=== PATIENT | male | born 1950 | race Caucasian/White ===

== ENCOUNTER 2020-09-03 06:05 | Observation (INO) | payer MEDICARE, OTHER ==
[~2020-09-03] VITALS: Ht 175.3 cm; Wt 126.6 kg
[2020-09-03] MEDS ORDERED: FAMOTIDINE/PF 20 MG/2 ML VIAL IV ONE (06:21)
[2020-09-03] MEDS ORDERED: ASPIRIN 325 MG TABLET ONE (06:21)
[2020-09-03] MEDS ORDERED: PANTOPRAZOLE 40 MG/VIAL ONE (06:21)
[2020-09-03 06:33] LABS: BASOPHILS % (AUTO) 1.1 % (0.0-5.0); EOSINOPHILS % (AUTO) 4.7 % (0.0-8.0); HEMATOCRIT 43.4 % (36-48); LYMPHOCYTES % (AUTO) 20.3 % (21.0-51.0); MEAN CORPUSCULAR HEMOGLOBIN 28.9 pg (27.0-33.0); MEAN CORPUSCULAR HGB CONC 32.7 g/dL (32.0-36.0); MEAN CORPUSCULAR VOLUME 88.4 fL (79-99); MONOCYTES % (AUTO) 14.2 % (3.0-13.0); NEUTROPHILS % (AUTO) 59.5 % (40.0-77.0); PLATELET COUNT (AUTO) 233 K/uL (130-400); RED BLOOD CELL COUNT(AUTO) 4.91 MIL/uL (4.00-5.50); RED CELL DISTRIBUTION WIDTH 15.4 % (11.0-15.5); WHITE BLOOD COUNT (AUTO) 5.4 K/uL (4.8-10.8)
[2020-09-03 06:46] LABS: PARTIAL THROMBOPLASTIN TIME 40.2 SEC (26.3-35.5)
[2020-09-03 06:47] LABS: ALBUMIN 3.1 g/dL (3.5-5.0); BILIRUBIN,TOTAL 0.4 mg/dL (0.2-1.0); CREATININE 1.7 mg/dL (0.5-1.5); POTASSIUM 3.3 mmol/L (3.5-5.1); TOTAL PROTEIN, SERUM 7.3 g/dL (6.0-8.3)
[2020-09-03 06:56] LABS: B-TYPE NATRIURETIC PEPTIDE 40 pg/mL (0-100)
[2020-09-03 06:59] LABS: INR 4.01 (0.85-1.15); PROTHROMBIN TIME 39.2 SEC (9.6-11.6)
[2020-09-03 07:42] LABS: APPEARANCE,URINE Clear (CLEAR); BILIRUBIN,URINE Negative (NEGATIVE); COLOR,URINE Yellow (YELLOW); GLUCOSE, URINE (UA) 250 mg/dL (NEGATIVE); KETONES,URINE Negative (NEGATIVE); LEUKOCYTE ESTERASE ,URINE Negative (NEGATIVE); NITRATE,URINE Negative (NEGATIVE); OCCULT BLOOD,URINE Negative (NEGATIVE); PH,URINE 5.5 (5.0-8.0); PROTEIN,URINE Negative (NEGATIVE); UROBILINOGEN,URINE 0.2 mg/dL (0.2-1.0)
[2020-09-03] MEDS ORDERED: LIDOCAINE HCL 2% VISCOUS 15 ML UDCUP ONE (07:50)
[2020-09-03] MEDS ORDERED: MAGNESIUM HYDROXIDE 30 ML/UDCUP ONE (07:50)
[2020-09-03] MEDS ORDERED: ONDANSETRON HCL 4 MG/2 ML VIAL ONE (07:50)
[2020-09-03] MEDS ORDERED: MORPHINE SULFATE 2 MG/ML 1ML SYG ONE (07:51)
[2020-09-03 08:13] LABS: BACTERIA,URINE Rare /HPF (None Seen); RBC,URINE 0-1 /HPF (0-1); SQUAMOUS EPITHELIAL CELL,UR Rare /HPF (0-2); WBC,URINE 0-1 /HPF (0-1)
[2020-09-03] MEDS: PANTOPRAZOLE 40 MG/VIAL IVP SCH (09:00)
[2020-09-03] MEDS ORDERED: ALBUTEROL INHALER 90MCG/INH IH PRN (09:15)
[2020-09-03 09:26] LABS: THYROID STIMULATING HORMONE 2.7 uIU/mL (0.36-3.74)
[2020-09-03] MEDS: BUMETANIDE 1 MG TAB PO SCH ×2 (09:53→21:00)
[2020-09-03] MEDS: INSULIN HUMULIN R 100 UNIT/ML 3ML SQ SCH ×3 (11:30→21:00)
[2020-09-03] MEDS ORDERED: AMIODARONE HCL 200 MG TABLET PO ONE (11:35)
[2020-09-03] MEDS ORDERED: ATORVASTATIN CALCIUM 40 MG TABLET ONE (11:35)
[2020-09-03] MEDS ORDERED: ATORVASTATIN CALCIUM 20 MG TABLET PO SCH (21:00)
[2020-09-03] MEDS ORDERED: POTASSIUM CHLORIDE 20 MEQ ERTAB PO ONE (21:29)
[2020-09-03] MEDS ORDERED: LIDOCAINE HCL-MPF 1% 2ML VIAL IJ PRN (21:45)
[2020-09-03] MEDS ORDERED: POTASSIUM CHLORIDE 20MEQ/100ML 100 ML IV PRN (21:45)
[2020-09-03] MEDS ORDERED: POTASSIUM CHLORIDE 10% ELIXIR 20 MEQ/15 ML UDCUP PO PRN (21:45)
[2020-09-03 21:55] VITALS: BP 136/73
[2020-09-03] MEDS: POTASSIUM CHLORIDE 20 MEQ ERTAB PO PRN (23:45)
[2020-09-04 00:26] VITALS: BP 136/73
[2020-09-04 04:32] VITALS: BP 134/86
[2020-09-04] MEDS: POTASSIUM CHLORIDE 20 MEQ ERTAB PO PRN (05:32)
[2020-09-04] MEDS: INSULIN HUMULIN R 100 UNIT/ML 3ML SQ SCH ×3 (07:30→16:07)
[2020-09-04 08:00] VITALS: BP 121/61
[2020-09-04] MEDS: AMIODARONE HCL 200 MG TABLET PO SCH ×2 (10:20→10:32)
[2020-09-04] MEDS: PANTOPRAZOLE 40 MG/VIAL IVP SCH (10:25)
[2020-09-04] MEDS: BUMETANIDE 1 MG TAB PO SCH (10:25)
[2020-09-04] MEDS ORDERED: BUME1TAB7 PO ×2 (10:46→14:33)
[2020-09-04 12:00] VITALS: BP 137/73
[2020-09-04] MEDS ORDERED: AMIO100T4 PO (14:33)
[2020-09-04] MEDS ORDERED: ATOR40TA69 PO (14:33)
[2020-09-04] MEDS ORDERED: SITA100T12 PO (14:33)
[2020-09-04] MEDS ORDERED: GLIP10TA9 PO (14:33)
== END 2020-09-04 16:20 | disposition home or self-care (01) ==
LOC: EDSEX 06:05 → EDH 06:05 → EDHIP 08:52 → 4AH 22:29
PROVIDERS: ADMIT Internal Medicine; ATTEND Internal Medicine
DX: R10.13 Epigastric pain (principal); I10 Essential (primary) hypertension; E78.5 Hyperlipidemia, unspecified; E11.9 Type 2 diabetes mellitus without complications; I48.91 Unspecified atrial fibrillation; R74.8 Abnormal levels of other serum enzymes; E66.9 Obesity, unspecified; F10.99 Alcohol use, unspecified with unspecified alcohol-induced disorder; Z79.01 Long term (current) use of anticoagulants; Z79.84 Long term (current) use of oral hypoglycemic drugs; Z79.899 Other long term (current) drug therapy; Z88.1 Allergy status to other antibiotic agents; Z88.0 Allergy status to penicillin; Z68.41 Body mass index [BMI] 40.0-44.9, adult
CPT/HCPCS: 36415 ×2; 71045; 74176; 76705; 80053; 80061; 81001; 82550; 82570; 82948 ×5; 83036; 83690; 83880 ×2; 84132; 84443; 84484 ×3; 84540; 85025; 85610; 85730; 93005 ×2; 93306; 93356; 96374; 99285; C9113 ×2; G0378 ×31; J2405; J3490